=== PATIENT | male | born 1980 | race Caucasian/White ===

== ENCOUNTER 2016-11-23 00:39 | Emergency (ER) | payer MEDICAID ==
[~2016-11-23] VITALS: Ht 165.1 cm; Wt 72.5 kg
[~2016-11-23 00:39] MED LIST: HYDR-3498 PO; IBUP-1542 PO
[2016-11-23 01:14] VITALS: Ht 165.1 cm; Wt 72.5 kg
[2016-11-23] MEDS ORDERED: FLUORESCEIN STRIP RIGHT EYE ONE (04:30)
[2016-11-23] MEDS ORDERED: TETRACAINE 0.5% 4 ML OPH RIGHT EYE ONE (04:30)
--- NOTE | 2016-11-23 04:43 | ERD ---
ER Documentation Chief Complaint Date/Time DATE: 11/23/16 TIME: 04:42 Chief Complaint RIGHT EYE REDNESS AND DC STATES THERE IS WOOD PARTICLES IN EYE HPI 36-year-old male presents in emergency department for complaints of right eye redness, foreign body sensation and irritation and watery discharge and tearing that started after working with wood at home. Patient feels like wood particles are inside his right. Patient denies any vision changes. Patient denies any fever or chills. ROS All systems reviewed and are negative except as per history of present illness. Medications Home Meds Active Scripts Ibuprofen* (Motrin*) 600 Mg Tab, 600 MG PO Q6, #20 TAB Prov:ADELA MCCOY PA-C 02/05/15 Hydrocodone Bit-Acetaminophen* ([place]*) 5-325 Mg Tab, 1 TAB PO Q6 Y for PAIN, # 7 TAB Prov:ADELA MCCOY PA-C 02/05/15 Allergies Allergies: Coded Allergies: No Known Allergy (Unverified , 02/05/15) PMhx/Soc Medical and Surgical Hx: pt denies Medical Hx, pt denies Surgical Hx History of Surgery: No Anesthesia Reaction: No Hx Neurological Disorder: No Hx Respiratory Disorders: No Hx Cardiac Disorders: No Hx Psychiatric Problems: No Hx Miscellaneous Medical Probl: No Hx Alcohol Use: No Hx Substance Use: No Hx Tobacco Use: No Smoking Status: Never smoker FmHx Family History: No coronary disease, No diabetes, No other Physical Exam Vitals Vital Signs Date Time Temp Pulse Resp B/P Pulse Ox O2 Delivery O2 Flow Rate FiO2 11/23/16 01:14 98.6 56 20 119/71 97 Physical Exam GENERAL: The patient is well developed and appropriate for usual state of health, in no apparent distress. HEENT: Atraumatic. Bilateral eyes are PERRL EOM intact, noted watery right eye with erythematous conjunctiva. No eye discharge noted.Ears: Normal tympanic membrane, no erythema or bulging. No ear canal swelling. No ear discharge. Nose : normal nasal turbinates, no erythema or swelling. Normal nasal discharge. Throat: oropharynx clear. No tonsillar swelling or tonsillar exudates. No lymphadenopathy. CHEST: Clear to auscultation bilaterally. There are no rales, wheezes or rhonchi. HEART: Regular rate and rhythm. No murmurs, clicks, rubs or gallops. No S3 or S4. ABDOMEN: Soft, nontender and nondistended. Good bowel sounds. No rebound or guarding. No gross peritonitis. No gross organomegaly or masses. No Beyer sign or McBurney point tenderness. BACK: No midline or flank tenderness. EXTREMITIES: Equal pulses bilaterally. There is no peripheral clubbing, cyanosis or edema. No focal swelling or erythema. Full range of motion. Grossly neurovascularly intact. NEURO: Alert and oriented. Cranial nerves 2-12 intact. Motor strength in all 4 extremities with 5/5 strength. Sensation grossly intact. Normal speech and gait. SKIN: There is no apparent rash or petechia. The skin is warm and dry. HEMATOLOGIC AND LYMPHATIC: There is no evidence of excessive bruising or lymphedema. No gross cervical, axillary, or inguinal lymphadenopathy. Results 24 hrs Current Medications Medications (Trade) Dose Ordered Sig/Katherine Route PRN Reason Start Time Stop Time Status Last Admin Dose Admin Fluorescein Sodium (Qsyfy-N-Fijtq) 1 strip ONCE ONCE RIGHT EYE 11/23/16 04:30 11/23/16 04:31 DC Tetracaine HCl (Tetracaine 0.5% Steri-Unit Elena) 1 drop ONCE ONCE RIGHT EYE 11/23/16 04:30 11/23/16 04:31 DC Procedure Note: After obtaining informed consent, the right eye was stained using fluorescein dye. After staining the eye, A Wood's lamp was used to evaluate the eye. There is no foreign body noted in the eye. Noted corneal abrasion on RUQ of eye. Eye lavage was done afterwards. Patient tolerated procedure well. Procedures/MDM Medical decision making: Patient symptoms like is consistent with a corneal abrasion of the right eye. No foreign body noted, the right eye was lavaged here in emergency department. No symptoms of any acute eye emergencies at this time, retinal detachment, acute closed angle glaucoma, no vision changes. No Andres sign. Prescriptione was given for Vigamox ophthalmic solution, is advised to follow- up with eye doctor in next 2-3 days for further evaluation and symptoms and recheck. Patient was advised to return to emergency department for any worsening symptoms. Disposition: Home. Stable. Departure Diagnosis: Primary Impression: Corneal abrasion Encounter type: initial encounter Laterality: right Qualified Code: S05.01XA - Abrasion of right cornea, initial encounter Condition: Stable Patient Instructions: Corneal Abrasion Additional Instructions: Prescription was given for Vigamox ophthalmic solution, is advised to follow-up with eye doctor in next 2-3 days for further evaluation and symptoms and recheck. Patient was advised to return to emergency department for any worsening symptoms. SU DAMON NP Nov 23, 2016 04:43
[2016-11-23] MEDS ORDERED: VIGA RIGHT EYE (04:55)
[2016-11-23] MEDS ORDERED: OPHTHALMIC IRRIG SOLUTION 120 ML RIGHT EYE ONE (05:00)
== END 2016-11-23 05:21 | disposition home or self-care (01) ==
LOC: FTE 00:39
DX: S05.01XA Injury of conjunctiva and corneal abrasion without foreign body, right eye, initial encounter (principal); W20.8XXA Other cause of strike by thrown, projected or falling object, initial encounter; Y92.009 Unspecified place in unspecified non-institutional (private) residence as the place of occurrence of the external cause
CPT/HCPCS: Z7502; Z7610; 99283